=== PATIENT | male | born 1980 ===

== ENCOUNTER 2025-10-21 07:00 | Day surgery (SDC) | payer OTHER ==
[2025-10-14 10:58] LABS: BASO % 0.6 % (0.1-1.2); EOS # 0.17 (0.04-0.54); EOS % 2.2 % (0.7-7.0); LYMPH # 1.73 (1.18-3.74); LYMPH % 22.0 % (19.3-53.1); MEAN PLATELET VOLUME 10.40 fl (9.4-12.4); MONO # 0.64 (0.24-0.82); MONO % 8.2 % (4.7-12.5); NEUT # 5.22 (1.56-6.13); NEUT % 66.5 % (34.0-71.1); RED CELL DISTRIBUTION WIDTH 12.5 % (11.6-14.4)
[2025-10-14 11:07] VITALS: BP 150/100
[2025-10-14 11:18] LABS: COVID-19 AG NEGATIVE (NEGATIVE)
[2025-10-14 11:23] LABS: URINE APPEARANCE Clear; URINE BILIRRUBIN Negative (NEGATIVE); URINE BLOOD Negative; URINE COLOR Yellow; URINE GLUCOSE Negative (NEGATIVE); URINE KETONE Negative (NEGATIVE); URINE LEUKOCYTE Negative; URINE NITRATE Negative; URINE PROTEIN Negative (NEGATIVE); URINE UROBILINOGEN 0.2 E.U./dl
[2025-10-14 11:23] LABS: INR 1.01
[2025-10-14 11:24] LABS: URINE BACTERIA 4.5 uL (0.0-1933); URINE EPITHELIAL CELLS 1.5 uL (0.0-38.8); URINE RBC 5.0 uL (0.0-20.8); URINE WBC 2.4 uL (0.0-23.2)
[2025-10-14 12:02] LABS: URINE CAST 0.00 uL (0.0-1.40)
[2025-10-14 12:15] LABS: BUN CREA RATIO 23.0 (7.0-25.0); CREATININE SERUM 0.73 mg/dL (0.70-1.30); GFR 116.72; GLUCOSE FASTING 105.0 mg/dL (65-100); OSMOLALITY SERUM 289.0 MOSM/KG (275-295); PROSTATIC SPECIFIC ANTIGEN 1.13 NG/ML (0.010-4.00)
[~2025-10-21 07:00] MED LIST: EZALLOR SPRINKL20 MG PO; GENTAMICIN SULFATE 40 MG/ML VIAL ONE
[2025-10-21] MEDS ORDERED: CHLORHEXIDINE GLUCONATE 120 ML BOTTLE TOP ONE (07:04)
[2025-10-21] MEDS ORDERED: METHYLENE BLUE 50MG/10ML AMP IV ONE (08:59)
[2025-10-21] MEDS ORDERED: SUGAMMADEX SODIUM 200 MG/2 ML VIAL IV ONE (11:51)
[2025-10-21] MEDS ORDERED: KETOROLAC TROMETHAMINE 30 MG VIAL ONE (13:02)
[2025-10-21] MEDS ORDERED: KETOROLAC TROMETHAMINE 30 MG VIAL IV ONE (13:15)
== END 2025-10-21 14:20 | disposition home or self-care (01) ==
LOC: CIR.AMB 07:00
PROVIDERS: ATTEND Urology
DX: N50.89 Other specified disorders of the male genital organs (principal); Z98.52 Vasectomy status